=== PATIENT | male | born 1950 | race Caucasian/White ===

== ENCOUNTER → 2017-04-24 | Outpatient (CLI) | payer MEDICARE, OTHER ==
[~2017-04-24] MED LIST: REGADENOSON 0.4 MG/5 ML SYRINGE ONE
== END | disposition home or self-care (01) ==
LOC: CFH 07:36
PROVIDERS: ATTEND Internal Medicine Cardiovascular Disease
DX: Z01.810 Encounter for preprocedural cardiovascular examination (principal); I25.9 Chronic ischemic heart disease, unspecified; I10 Essential (primary) hypertension
CPT/HCPCS: 78452; 93017; A9502; J2785

== ENCOUNTER 2017-05-08 08:48 | Day surgery (SDC) | payer MEDICARE, OTHER ==
[2017-05-07 09:12] VITALS: BP 145/92
[2017-05-07 09:44] LABS: BLOOD UREA NITROGEN 14 mg/dL (7-18)
[~2017-05-08] VITALS: Ht 182.9 cm; Wt 93.2 kg
[~2017-05-08 08:48] MED LIST changes: +ASPI325T4 PO; +FLUT1DIS3 INH; +GABA300C10 PO; +HYDR25TA6 PO; +LAMO25TA PO; +METO25TA4 PO; +OMEP-110 PO; +POTASSIUM PO; -REGADENOSON 0.4 MG/5 ML SYRINGE ONE; +SIMV20TA3 PO; +SPIR25TA3 PO
[2017-05-08] MEDS ORDERED: SODIUM CHLORIDE 0.9% 1,000 ML IV SCH (09:17)
[2017-05-08] MEDS ORDERED: FENTANYL PF 100 MCG/2ML ONE (10:18)
[2017-05-08] MEDS ORDERED: MIDAZOLAM 1 MG/ML, 5ML ONE (10:18)
[2017-05-08] MEDS ORDERED: LIDOCAINE 2%, 20ML ONE (10:19)
== END 2017-05-08 13:49 | disposition home or self-care (01) ==
LOC: CACL 08:48
PROVIDERS: ATTEND Internal Medicine Cardiovascular Disease
DX: R93.1 Abnormal findings on diagnostic imaging of heart and coronary circulation (principal); J44.9 Chronic obstructive pulmonary disease, unspecified; Z87.891 Personal history of nicotine dependence; F10.10 Alcohol abuse, uncomplicated; G60.9 Hereditary and idiopathic neuropathy, unspecified; E78.5 Hyperlipidemia, unspecified; Z72.89 Other problems related to lifestyle; Z98.42 Cataract extraction status, left eye; Z98.41 Cataract extraction status, right eye; Z96.1 Presence of intraocular lens; Z98.890 Other specified postprocedural states; Z86.73 Personal history of transient ischemic attack (TIA), and cerebral infarction without residual deficits; Z82.49 Family history of ischemic heart disease and other diseases of the circulatory system; I71.4 Abdominal aortic aneurysm, without rupture; Z79.01 Long term (current) use of anticoagulants
CPT/HCPCS: 36415; 71020; 80048; 85025; 85610; 85730; 93458; 99156; C1760; C1894; J2250; J3010; J3490; Q9967

== ENCOUNTER → 2017-05-21 | Outpatient (CLI) | payer MEDICARE, OTHER | END | disposition home or self-care (01) | LOC: CFH 08:29 | PROVIDERS: ATTEND Internal Medicine Cardiovascular Disease | DX: Z01.810 Encounter for preprocedural cardiovascular examination (principal); I11.9 Hypertensive heart disease without heart failure; I51.89 Other ill-defined heart diseases; I35.1 Nonrheumatic aortic (valve) insufficiency | CPT/HCPCS: 93306 ==

== ENCOUNTER 2019-11-01 08:38 | Outpatient (CLI) | payer MEDICARE ==
[~2019-11-01 08:38] MED LIST changes: +ASPI325T17 PO; -ASPI325T4 PO; -LAMO25TA PO; +LAMO25TA9 PO; -SPIR25TA3 PO; +SPIR25TA5 PO
== END 2019-11-01 23:59 | disposition home or self-care (01) ==
LOC: CFH 08:38
PROVIDERS: ATTEND Internal Medicine Cardiovascular Disease
DX: I35.1 Nonrheumatic aortic (valve) insufficiency (principal); I71.4 Abdominal aortic aneurysm, without rupture; J44.9 Chronic obstructive pulmonary disease, unspecified; E78.5 Hyperlipidemia, unspecified; I10 Essential (primary) hypertension; Z87.891 Personal history of nicotine dependence
CPT/HCPCS: 93306

== ENCOUNTER 2020-06-09 09:42 | Emergency (ER) | payer MEDICARE ==
[~2020-06-09] VITALS: Ht 182.9 cm; Wt 91.9 kg
[~2020-06-09 09:42] MED LIST changes: +SIMV20TA19 PO; -SIMV20TA3 PO
--- NOTE | 2020-06-09 10:00 | NUR ---
ALL ROOM MONITORING IN PLACE. PT DENIES CP, ORNELAS AT THIS TIME. STATES SLIGHT NUMBNESS TO BILATERAL HANDS/FINGERS. CALL LIGHT WITHIN REACH.
[2020-06-09 10:25] LABS: BASOPHILS # (AUTO) 0.03 x10^3/uL (0-0.1); BASOPHILS % (AUTO) 0 % (0-1); EOSINOPHILS # (AUTO) 0.04 x10^3/uL (0-0.4); EOSINOPHILS % (AUTO) 1 % (1-7); LYMPHOCYTES % (AUTO) 18 % (22-44); MD NO; MEAN CORPUSCULAR HEMOGLOBIN 33.4 pg (27.5-34.5); MEAN CORPUSCULAR HGB CONC 34.4 g/dL (33.2-36.2); MEAN PLATELET VOLUME 7.6 fL (7.4-10.4); MONOCYTES % (AUTO) 7 % (2-9); NEUTROPHILS # (AUTO) 5.46 x10^3/uL (1.8-6.8); NEUTROPHILS % (AUTO) 75 % (42-75); PLATELET COUNT 167 x10^3/uL (130-400); RED BLOOD COUNT 4.92 x10^6/uL (4.38-5.82); RED CELL DISTRIBUTION WIDTH 13.5 % (9.4-14.8)
[2020-06-09 10:34] LABS: ALBUMIN 3.7 g/dL (3.4-5.0); ANION GAP 6 mmol/L (5-15); CHLORIDE 109 mmol/L (98-107); CREATININE 1.14 mg/dL (0.7-1.3)
[2020-06-09 10:39] LABS: TROPONIN I < 0.015 ng/mL (0.000-0.045)
--- NOTE | 2020-06-09 10:45 | NUR ---
ALL RESULTS BACK, PT FOR RECHECK.
--- NOTE | 2020-06-09 10:52 | NUR ---
ADD ON ORDER FOR CT.
--- NOTE | 2020-06-09 11:33 | NUR ---
PT TO CT.
[2020-06-09 12:24] VITALS: BP 121/81
== END 2020-06-09 12:27 | disposition home or self-care (01) ==
LOC: ED 09:52
DX: G43.C0 Periodic headache syndromes in child or adult, not intractable (principal); R07.9 Chest pain, unspecified; R94.31 Abnormal electrocardiogram [ECG] [EKG]; I10 Essential (primary) hypertension; E78.5 Hyperlipidemia, unspecified; K21.9 Gastro-esophageal reflux disease without esophagitis
CPT/HCPCS: 36415; 70450; 71045; 80048; 82040; 84484; 85025; 93005; 99285